=== PATIENT | female | born 1965 | race Caucasian/White ===

== ENCOUNTER 2016-12-10 11:49 | Emergency (ER) | payer MEDICARE, MEDICAID ==
[~2016-12-10] VITALS: Ht 157.5 cm; Wt 52.2 kg
[2016-12-10] MEDS ORDERED: IBUPROFEN600 MG ORAL (12:42)
[2016-12-10] MEDS ORDERED: BACITRACIN15 GM TOPIC (12:42)
[2016-12-10 12:49] VITALS: BP 110/60
[2016-12-10 12:51] VITALS: BP 110/60
--- NOTE | 2016-12-10 18:57 | Emergency Room Report ---
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 Pain of both feet began 3 months prior for no known reason. The patient does admit to wearing old shoes. Described as an 8/10 dull ache to the heels and top of both feet and occurs with walking. Does not radiate. She denies any numbness or tingling. She denies any known injury. She is also developed a growth of the left upper eyelid which occurred 4 days prior and has been increasing. She states that she had a chalazion of the right upper eyelid previously and this feels the same. Denies any visual changes or discharge from the eye or eyelid. Denies any other symptoms including nausea, vomiting, fever, chills Allergies: Coded Allergies: No Known Allergies (Unverified , 12/10/16) Patient History Past Medical History: see triage record Pertinent Family History: none Reviewed Nursing Documentation: PMH: Agreed, PSxH: Agreed Nursing Documentation-PM Past Medical History: No History, Except For History Of Psychiatric Problem: Yes - SCHIZOPHERNIA Hx Neurological Problems: Yes - METAL DELAY Hx Seizures: Yes Review of Systems All Other Systems: negative except mentioned in HPI Physical Exam Vital Signs Date Time Temp Pulse Resp B/P (MAP) Pulse Ox O2 Delivery O2 Flow Rate FiO2 12/10/16 11:59 97.9 75 20 96/64 98 Room Air Sp02 EP Interpretation: reviewed, normal General Appearance: no apparent distress, alert, GCS 15, non-toxic Head: normocephalic, atraumatic Eyes: bilateral eye normal inspection, bilateral eye PERRL, bilateral eye EOMI , bilateral eye lid inflammation - L upper eyelid has 1cm circular growth superior to eyelid margin. Non tender. No fluctuance ENT: hearing grossly normal, normal pharynx, no angioedema, normal voice Neck: full range of motion, supple/symm/no masses Respiratory: chest non-tender, lungs clear, normal breath sounds, speaking full sentences Musculoskeletal: back normal, gait/station normal, normal range of motion, tender - TTP over bilat navicular bone and calcaneus Neurologic: alert, oriented x3, responsive, motor strength/tone normal, sensory intact, speech normal Psychiatric: judgement/insight normal, memory normal, mood/affect normal, no suicidal/homicidal ideation Skin: normal color, no rash, warm/dry, well hydrated Lymphatic: no adenopathy Medical Decision Making PA Attestation Dr. Manzanares is my supervising physician. Patient management was discussed with my supervising physician Diagnostic Impression: Primary Impression: Foot pain, bilateral Additional Impression: Chalazion of left upper eyelid ER Course The patient is a 51-year-old female presenting with bilateral foot pain and left upper eyelid growth Differential diagnosis considered not limited to: Contusion, fracture, sprain, tendinitis Differential diagnoses considered but not limited to: Blepharitis, chalazion, conjunctivitis, stye Physical exam: Left upper eyelid growth consistent with chalazion. Will not be incised and drained in the emergency department. Bilateral feet are unremarkable. Normal gait. Full active range of motion. No ecchymosis. No edema The patient will be discharged home and is told to follow up with ophthalmology as soon as possible. She will apply warm compresses and massage the eyelid ER precautions are given Last Vital Signs Date Time Temp Pulse Resp B/P (MAP) Pulse Ox O2 Delivery O2 Flow Rate FiO2 12/10/16 12:51 97.6 68 16 110/60 98 Room Air Status: improved Disposition: HOME, SELF-CARE Condition: Improved Scripts Ibuprofen* (MOTRIN*) 600 Mg Tablet 600 MG ORAL Q8H Y for For Pain, #30 TAB 0 Refills Prov: JOHANNE KAUFMAN P.A. 12/10/16 Bacitracin (Bacitracin) 28.4 Gm Oint...g. 1 APPLIC TOPIC THREE TIMES A DAY, #28 GM Prov: JOHANNE KAUFMAN P.A. 12/10/16 Referrals: NON PHYSICIAN (PCP) Patient Instructions: RANJEET Parker for Routine Care of Injuries Additional Instructions: I discussed my findings with the patient. All questions and concerns have been answered. Treatment and medication compliance have been addressed. I advised the patient that they need to follow up with PMD in 3-5 days. Return to ED if symptoms worsen, new symptoms arise, or if needed for any reason. Patient verbalized understanding of discharge instructions. The patient was advised that she needs to followup with ophthalmology. Apply warm compress to the left upper eyelid and massage the area gently. The patient was also advised to limit walking for the next 3 days and was given RICE instructions JOHANNE KAUFMAN Dec 10, 2016 18:57
== END 2016-12-10 12:53 | disposition home or self-care (01) ==
LOC: EMR 12:30
DX: M79.672 Pain in left foot (principal); M79.671 Pain in right foot; H00.14 Chalazion left upper eyelid; F20.9 Schizophrenia, unspecified
CPT/HCPCS: 99284